=== PATIENT | female | born 1955 | race Caucasian/White ===

== ENCOUNTER 2021-01-03 08:31 | Emergency (ER) | payer BC, SELFPAY ==
[2021-01-03] MEDS ORDERED: EPINEPHrine 1 MG/10 ML SYR IV ONE (08:32)
--- OUTSIDE RECORDS SUMMARY | 2021-01-03 08:33 | XMS REPORT | Continuity of Care Document ---
:1955 Author Organization [facility] t Address [address] [place] [address] Care Team Providers Name Role Phone Radiology Attending Clinician Unavailable Doctor Unassigned, Name Attending Clinician Unavailable Problems This patient has no known problems. Allergies, Adverse Reactions, Alerts This patient has no known allergies or adverse reactions. Medications This patient has no known medications. Procedures This patient has no known procedures. Encounters Start End Encounter Admission Attending Care Care Encounter Source Date/Time Date/Time Type Type Clinicians Facility Department ID 2020-07-01 2020-07-01 [facility] Radiology [facility] [id number] 11:20:00 23:59:00 Encounter [place] [id number] [place] [id number] [place] [id number] 2020-07-01 2020-07-01 Orders Doctor ROBERTO [id number] 00:00:00 00:00:00 Only Unassigned, NORY [id number] [place] [facility] [id number] Results This patient has no known results.
--- NOTE | 2021-01-03 09:59 | EDPHYS ---
Physician Documentation [facility] Name: Nay Calhoun Age: 65 yrs Sex: Female : 1955 Arrival Date: 01/03/2021 Time: 08:35 Bed 3 Private MD: ED Physician Hamlet Kauffman HPI: 01/03 09:51 This 65 yrs old Female presents to ER via EMS with complaints of cpr, gagan respiratory arrest. 09:51 Preceding the arrest, the patient was dyspneic. The arrest occurred at home. gagan Pre-hospital course: EMS care prior to arrival: initiation of ACLS, peripheral IV, intubation was successfully performed, oxygen. The patient has experienced a previous episode, approximately 3 years ago. Historical: - PMHx: 09:05 CHF; COPD; Diabetes - IDDM; Depression; tr6 - Family history:: not pertinent. ROS: 09:51 Unable to obtain ROS due to patient distress, patient is on ventilator, CPR. gagan Exam: 09:51 Head/Face: Normocephalic, atraumatic. gagan 09:51 Neck: 09:51 Cardiovascular: Rate: actual rate is 0 bpm, Rhythm: irregular, pea, Pulses: not palpable, Heart sounds: none, Edema: 1+ edema to level of left midcalf and right midcalf, JVD: is noted bilaterally, to 3 cm. 09:51 Respiratory: intubated, Respiratory rate: zero Vital Signs: 08:38 Temp 97.8(R); tr6 08:59 BP 0 / 0; Pulse 0; Resp 0; Temp 97.8(R); Pulse Ox 100% on ETT ambu; Height 5 ft. 4 in. tr6 (162.56 cm); Procedures: 09:59 Central Line: the site was prepped with Betadine, in sterile fashion, a triple lumen gagan catheter was inserted, in the right in 4 attempts. placement was verified, by blood return, the site was dressed with Tegaderm, using sterile technique, the patient tolerated the procedure, well. MDM: 08:56 Patient medically screened. gagan 09:56 Differential diagnosis: arrythmia, cardiac arrest, respiratory arrest. Data reviewed: [facility] vital signs, nurses notes, EMS record. Data interpreted: monitor technician: rate is 64 beats/min, rhythm is irregular, Pulse oximetry: is not applicable for this patient encounter. Counseling: I had a detailed discussion with the patient and/or guardian regarding: the historical points, exam findings, and any diagnostic results supporting the discharge/admit diagnosis. 01/03 08:39 Order name: glucometer results - FOR PT WITH NO ID tr6 Administered Medications: 08:32 Drug: EPINEPHrine 0.1mg/mL 1:10,000 1 mg Route: IVP; Site: Other; tr6 08:34 Drug: Calcium Chloride 1 grams Route: IVP; Site: Other; tr6 08:36 Drug: EPINEPHrine 0.1mg/mL 1:10,000 1 mg Route: IVP; Site: Other; tr6 08:38 Drug: EPINEPHrine 0.1mg/mL 1:10,000 1 mg Route: IVP; Site: Other; tr6 08:38 Drug: Sodium Bicarbonate 1 amp Route: IVP; Site: Other; tr6 08:42 Drug: EPINEPHrine 0.1mg/mL 1:10,000 1 mg Route: IVP; Site: Other; tr6 08:42 Drug: Sodium Bicarbonate 1 amp Route: IVP; Site: Other; tr6 08:42 Drug: Calcium Chloride 1 grams Route: IVP; Site: Other; tr6 08:45 Drug: EPINEPHrine 0.1mg/mL 1:10,000 1 mg Route: IVP; Site: Other; tr6 Point of Care Testing: Blood Glucose: 08:38 Blood Glucose: 176 mg/dL; tr6 Ranges: Critical Glucose Levels:Adult <50 mg/dl or >400 mg/dl <40 mg/dl or >180 mg/dl Disposition: 09:57 Critical Care:. gagan Disposition: Patient pronounced on 01/03/21 08:55 by Hamlet Kauffman. Impression: Respiratory failure, unspecified, Unspecified combined systolic (congestive) and diastolic (congestive) heart failure, Cardiac arrest. - Released to Home. Critical care time excluding procedures: :57 Critical care time: Bedside Care: 35 minutes, Family Intervention: 10 minutes. Total gagan time: 45 minutes Signatures: Dispatcher [employer] EDHamlet Mohr MD MD cha Ramnanan, Tiffany, RN RN tr6 Corrections: (The following items were deleted from the chart) 15:52 09:58 01/03/2021 09:58 Patient pronounced on 01/03/2021 at 08:55 by Hamlet Kauffman. tr6 Impression: Respiratory failure, unspecified; Unspecified combined systolic (congestive) and diastolic (congestive) heart failure; Cardiac arrest. Released to Home. gagan
--- NOTE | 2021-01-03 09:59 | ER ---
Nurse's Notes [facility] Name: Nay Calhoun Age: 65 yrs Sex: Female : 1955 Arrival Date: 01/03/2021 Time: 08:35 Bed 3 Private MD: Diagnosis: Respiratory failure, unspecified;Unspecified combined systolic (congestive) and diastolic (congestive) heart failure;Cardiac arrest Presentation: 01/03 08:32 Care prior to arrival: Oral intubation, CPR and is still in progress pt received and tr6 transported to ED stretcher with chichi device, compressions continued manually by ED staff. pulse check complete. no pulse present. asystole on arrival. 08:59 Chief complaint: EMS states: CPR in progress. per EMS pt walked in to daughters room tr6 saying she is unable to breathe. daughter called 911. on EMS arrival pt was purple and down. CPR started. pt received one shock for v fib, but was otherwise in asystole. total of 4 rounds of epi given in the field and intubated. Coronavirus screen: At this time, unable to obtain information related to travel outside the [place] Ebola Screen: Unable to complete the Ebola screening because:. Initial Sepsis Screen: Does the patient meet any 2 criteria? Systolic BP < 90 mmHg. Mean Arterial Pressure (MAP) < 65. 08:59 Acuity: CANDELARIA 1 tr6 08:59 Method Of Arrival: EMS: [facility] tr6 Historical: - PMHx: 09:05 CHF; COPD; Diabetes - IDDM; Depression; tr6 - Family history:: not pertinent. Assessment: 08:36 Cardiac rhythm is asystole. tr6 08:40 Cardiac rhythm is asystole. tr6 08:41 Cardiac rhythm is PEA. tr6 08:42 CPR assessment: CPR resumed. tr6 08:53 Cardiac rhythm is asystole. tr6 09:57 Reassessment: PD at bedside. tr6 10:44 Reassessment: family at bedside. tr6 Vital Signs: 08:38 Temp 97.8(R); tr6 08:59 BP 0 / 0; Pulse 0; Resp 0; Temp 97.8(R); Pulse Ox 100% on ETT ambu; Height 5 ft. 4 in. tr6 (162.56 cm); ED Course: 08:35 Patient arrived in ED. gagan 08:38 Inserted saline lock: in right EJ, using aseptic technique. placed by MD Kauffman. tr6 08:38 Maintain EMS IV. maintain IO access by EMS to left tib. tr6 08:56 Hamlet Kauffman MD is Attending Physician. gagan 09:05 Triage completed. tr6 09:57 Shereen Ontiveros, RN is Primary Nurse. tr6 09:57 Hamlet Kaufmfan MD is Pronouncing Provider. [facility] 14:30 contacted [facility] on behalf of family, will be en route shortly. iw Administered Medications: 08:32 Drug: EPINEPHrine 0.1mg/mL 1:10,000 1 mg Route: IVP; Site: Other; tr6 08:34 Drug: Calcium Chloride 1 grams Route: IVP; Site: Other; tr6 08:36 Drug: EPINEPHrine 0.1mg/mL 1:10,000 1 mg Route: IVP; Site: Other; tr6 08:38 Drug: EPINEPHrine 0.1mg/mL 1:10,000 1 mg Route: IVP; Site: Other; tr6 08:38 Drug: Sodium Bicarbonate 1 amp Route: IVP; Site: Other; tr6 08:42 Drug: EPINEPHrine 0.1mg/mL 1:10,000 1 mg Route: IVP; Site: Other; tr6 08:42 Drug: Sodium Bicarbonate 1 amp Route: IVP; Site: Other; tr6 08:42 Drug: Calcium Chloride 1 grams Route: IVP; Site: Other; tr6 08:45 Drug: EPINEPHrine 0.1mg/mL 1:10,000 1 mg Route: IVP; Site: Other; tr6 Point of Care Testing: Blood Glucose: 08:38 Blood Glucose: 176 mg/dL; tr6 Ranges: Outcome: 08:38 Outcome Patient tr6 08:38 Patient : Time of 08:38 Pronounced by Hamlet Kauffman MD 08:38 Condition: 15:52 Patient left the ED. tr6 Signatures: Hamlet Kauffman MD MD cha Williams, Irene, RN RN iw Shereen Ontiveros RN RN tr6
[2021-01-03 15:57] VITALS: TEMP 97.8
[2021-01-03 15:59] VITALS: BP 0/0; O2SAT 100
== END 2021-01-03 15:52 | disposition expired ==
LOC: ER 08:31
PROC: 5A12012 Performance of Cardiac Output, Single, Manual (ICD-10-PCS; principal; 2021-01-03)
DX: I46.9 Cardiac arrest, cause unspecified (principal); I50.40 Unspecified combined systolic (congestive) and diastolic (congestive) heart failure
CPT/HCPCS: 36415; 82947; 92950; 96374; 96375; 99285; J0171